=== PATIENT | female | born 1985 | race Caucasian/White ===

== ENCOUNTER 2017-12-19 17:40 | Emergency (ER) | payer OTHER ==
[~2017-12-19] VITALS: Ht 167.6 cm; Wt 65.0 kg
[2017-12-19 17:43] VITALS: BP 143/90
[2017-12-19] MEDS ORDERED: LIDOCAINE-MPF 2%, 2ML ONE (18:27)
[2017-12-19] MEDS ORDERED: HYDROmorphone 2 MG/ML, 1ML ONE (18:28)
[2017-12-19] MEDS ORDERED: LIDOCAINE 2%, 20ML SQ ONE (18:30)
[2017-12-19] MEDS ORDERED: HYDROmorphone 1 MG/ML, 1ML IM STA (19:13)
== END 2017-12-19 20:17 | disposition home or self-care (01) ==
LOC: ED 20:05
DX: L03.811 Cellulitis of head [any part, except face] (principal); F17.200 Nicotine dependence, unspecified, uncomplicated
CPT/HCPCS: 10060; 96372; 99283; J1170; J3490

== ENCOUNTER 2018-02-27 22:57 | Emergency (ER) | payer OTHER ==
[~2018-02-27] VITALS: Ht 167.6 cm; Wt 70.0 kg
[2018-02-27 23:00] VITALS: BP 152/91
[2018-02-27] MEDS ORDERED: CLINDAMYCIN 300 MG CAPSULE ONE (23:21)
[2018-02-27] MEDS ORDERED: CLINDAMYCIN 300 MG CAPSULE PO ONE (23:30)
== END 2018-02-27 23:35 | disposition home or self-care (01) ==
LOC: ED 23:10
DX: L02.11 Cutaneous abscess of neck (principal); L02.01 Cutaneous abscess of face; F17.210 Nicotine dependence, cigarettes, uncomplicated
CPT/HCPCS: 99283